=== PATIENT | female | born 1975 | race Caucasian/White ===

== ENCOUNTER 2019-01-17 15:45 | Day surgery (SDC) | payer MEDICAID, OTHER ==
[2019-01-17] VITALS (15 sets, daily range): BP systolic 105–131; BP diastolic 62–81; PULSE 64–81; RESP 9–20; Ht 165.1 cm; Wt 95.0 kg
[~2019-01-17] VITALS: Ht 165.1 cm; Wt 95.0 kg
[~2019-01-17 15:45] MED LIST: SEVOFLURANE 15 MIN ONE
--- NOTE | 2019-01-17 17:13 | PREAC ---
Date/Time of Note Date/Time of Note DATE: 01/17/19 TIME: 17:12 Anesthesia Eval and Record Evaluation Time Pre-Procedure Interview DATE: 01/17/19 TIME: 17:12 Age 43 Sex female NPO: 8 hrs Preoperative diagnosis LEFT ACHILLES TENDON RUPTURE Planned procedure LEFT ACHILLES TENDON REPAIR Past Medical History Past Medical History: Includes GI: Obesity Surgery & Anesthesia Issues No known issue Meds Anticoagulation: No Beta Ozzie within 24 hr: No Reason Beta Ozzie not given: Pt. not on B-Ozzie Meds reviewed: Yes Allergies Allergies Reviewed: Yes Labs/Studies Labs Reviewed: Other (NA) test: N/A Pre-procedure Exam Last vitals Vital Signs Date Temp Pulse Resp B/P (MAP) Pulse Ox O2 O2 Flow FiO2 Time Delivery Rate 01/17/19 98.1 64 16 131/78 100 Room Air 16:26 (95) Airway: Adequate mouth opening Mallampati: Mallampati II Teeth: Normal Lung: Normal Heart: Normal ASA Physical Status ASA physical status: 2 Emergency: None Planned Anesthetic General/MAC: ETT Pre-operative Attestations Prior to commencing anesthesia and surgery, the patient was re-evaluated, there was verification of: *The patient's identity *The results of appropriate recent lab work and preoperative vital signs *The above evaluation not changing prior to induction *Anesthetic plan, risk benefits, alternative and complications discussed with patient/family; questions answered; patient/family understands, accepts and wishes to proceed. VADIM GALVAN Jan 17, 2019 17:13
[2019-01-17] MEDS ORDERED: POLYMYXIN/BACITRACIN 1L IRRIG ONE (17:27)
[2019-01-17] MEDS ORDERED: ROPIVACAINE 0.5 % 30 ML VIAL ONE (17:27)
[2019-01-17] MEDS ORDERED: NEOMYC/POLYMYX/BACIT 30 GM OINT ONE (17:28)
[2019-01-17] MEDS ORDERED: BUPIVACAINE 0.5% (SDV) 30 ML INJ ONE (18:09)
[2019-01-17] MEDS ORDERED: MIDAZOLAM 1 MG/ML 2 ML INJ ONE (18:10)
[2019-01-17] MEDS ORDERED: FENTAnyl 50 MCG/ML VIAL ONE ×2 (18:11→19:34)
--- NOTE | 2019-01-17 18:31 | HPN ---
Date/Time of Note Date/Time of Note DATE: 01/17/19 TIME: 18:31 Interval H&P Admission Note Pt. seen H&P reviewed: No system changes KAELYN HUMPHRIES MD Jan 17, 2019 18:31
[2019-01-17] MEDS ORDERED: PROPOFOL 20 ML ONE (18:42)
[2019-01-17] MEDS ORDERED: OXYCODONE/ACETAMINOPHEN (5/325) TAB PO PRN ×3 (19:00→21:00)
[2019-01-17] MEDS ORDERED: morphine 2 MG INJ IV PRN (19:00)
[2019-01-17] MEDS ORDERED: GABAPENTIN 300 MG CAP PO ONE (19:00)
[2019-01-17] MEDS ORDERED: THROMBIN 5000 UNIT VIAL ONE ×2 (19:21→19:54)
[2019-01-17] MEDS ORDERED: CA CHLORIDE 10% 10 ML SYRINGE ONE (19:21)
[2019-01-17] MEDS ORDERED: CEFAZOLIN 1 GM INJ ONE (19:31)
[2019-01-17] MEDS ORDERED: LIDOCAINE 2% (SDV) 5 ML INJ ONE (19:32)
[2019-01-17] MEDS ORDERED: DEXAMETHASONE 4 MG/ML 5 ML INJ ONE (19:32)
[2019-01-17] MEDS ORDERED: ROCURONIUM 50 MG INJ ONE (19:32)
[2019-01-17] MEDS ORDERED: ONDANSETRON 4 MG INJ ONE (19:32)
[2019-01-17] MEDS ORDERED: SUGAMMADEX SODIUM 200 MG/2 ML VIAL IV ONE (20:22)
--- NOTE | 2019-01-17 20:44 | PAC ---
Date/Time of Note Date/Time of Note DATE: 01/17/19 TIME: 20:44 Post-Anesthesia Notes Post-Anesthesia Note Last documented vital signs Vital Signs Date Temp Pulse Resp B/P (MAP) Pulse Ox O2 O2 Flow FiO2 Time Delivery Rate 01/17/19 98.1 64 16 131/78 100 Room Air 2044 (95) Activity: WNL Respiratory function: WNL Cardiovascular function: WNL Mental status: Baseline Pain reasonably controlled: Yes Hydration appropriate: Yes Nausea/Vomiting absent: Yes MICHELLE BOYLE Jan 17, 2019 20:44
[2019-01-17] MEDS ORDERED: LABETALOL HCL 20MG INJ IV PRN (21:00)
[2019-01-17] MEDS ORDERED: EPHEDrine 25 MG/5 ML SYG IV PRN (21:00)
[2019-01-17] MEDS ORDERED: DIPHENHYDRAMINE 50 MG INJ IV PRN (21:00)
[2019-01-17] MEDS ORDERED: hydrALAzine 20 MG INJ IV PRN (21:00)
[2019-01-17] MEDS ORDERED: ONDANSETRON 4 MG INJ IV PRN (21:00)
[2019-01-17] MEDS ORDERED: ALBUTEROL 0.083% (NEB) 2.5 MG/3 ML AMP HHN PRN (21:00)
[2019-01-17] MEDS ORDERED: MEPERIDINE 25 MG INJ IV PRN (21:00)
[2019-01-17] MEDS ORDERED: METOCLOPRAMIDE 10 MG INJ IV PRN (21:00)
[2019-01-17] MEDS ORDERED: FENTAnyl 50 MCG/ML VIAL IV PRN ×3 (21:00)
[2019-01-17] MEDS ORDERED: KETOROLAC 30 MG INJ IV PRN (21:00)
[2019-01-17] MEDS ORDERED: HYDROmorphONE 1 MG/5 ML IV SYRINGE IV PRN ×3 (21:00)
--- NOTE | 2019-01-17 22:34 | OPR ---
Date/Time of Note Date/Time of Note DATE: 01/17/19 TIME: 22:32 Operative Report Procedure Date: Jan 17, 2019 Preoperative Diagnosis Left Achilles Rupture Postoperative Diagnosis Left Achilles Rupture Operation/Procedure Performed Left Achilles Rupture repair with PRP and Allograft Surgeon Babak Humphries MD Production Maintenance Technician none Anesthesia Type: general, other (popliteal) Anesthesiologist: MICHELLE BOYLE Tourniquet Time: 51 min at 250 mmHg Estimated Blood Loss: minimal Transfusion none Specimen none Grafts/Implants Arthrex PRP 5%, amnion, Mid Substance PARS with Swivel Lock x 2 Complications none Pt Condition Post Procedure: stable Disposition: PACU Indications Patient is a 43-year-old female with a left Achilles rupture approximately 3 weeks ago. Patient was diagnosed with Achilles rupture. Patient was indicated for surgical fixation. Risk Note: Patient was explained the risks and benefits of surgery and the patient's [place] language including not limited to infection, bleeding, injury to blood vessels, nerves, ligaments or tendons. Risks of anesthesia, deep vein thrombosis and need for reduce future surgery. Patient acknowledged these risk by signing the surgical consent form. Procedure Description The patient was met in the preoperative holding area and the operation was marked and confirmed with patient and consent. Patient was brought to the operative theater and placed supine on the operative table and given preoperative antibiotics and regional anesthesia. A tourniquet was placed on the operative extremity non-sterilely. Patient was then placed into the prone position with all bony prominences well-padded. The patient was then prepped and draped in the normal sterile fashion. Timeout taken and all parties in the room agreed it was the correct patient, extremity and procedure. An incision was made over the distal portion of the Achilles. Once the scar tissue was debrided he Achilles was freed up proximally and distally. I then placed a pars jig was placed over the proximal aspect of the Achilles. The pars suture construct was then performed in typical manner using a locking suture in both the medial and lateral side. The repair was then tested and shown to have excellent excursion on the proximal side. 2 drill holes were then made in the calcaneus and then tapped and then using a banana suture lasso passed through both the distal and Achilles stump and the proximal Achilles stump to pull the suture down and out through the stab incisions. A 4.75 mm swivel lock were then placed with appropriate tension on the Achilles at the calcaneus with the Achilles brought to approximation as best possible. The wound was irrigated again and an epitendonous suture was then placed with 3-0 PDS, then a viscous PRP was placed over the Achilles repair. The peritenon was closed with a 3-0 Vicryl followed by amniotic membrane placed over the peritenon and then skin closed with a 3-0 Monocryl followed by 4-0 Monocryl. The Calcaneal incision was closed with a 4-0 Nylon. The repair construct was tested and shown to have active plantarflexion with the Dhaliwal test. The wounds were then cov ered with Xeroform antibiotic ointment and 4 x 4's soaked with platelet poor plasma and placed in a well-padded short leg splint in approximately 15-20 degrees of plantarflexion. The patient Was taken to the PACU in a stable condition and all sponge and n eedle counts were correct. In the PACU the patient's toes were warm and well perfused. Patient will remain nonweightbearing for the next 5 weeks and begin aspirin 81 mg p.o. twice daily beginning tomorrow for DVT prophylaxis. BABAK HUMPHRIES MD Jan 17, 2019 22:34
== END 2019-01-17 22:44 | disposition home or self-care (01) ==
LOC: SDS 15:45
PROVIDERS: ATTEND Orthopaedic Surgery
DX: S86.012A Strain of left Achilles tendon, initial encounter (principal); X58.XXXA Exposure to other specified factors, initial encounter
CPT/HCPCS: 27650; 82306; 84703; J0690; J1100; J2250; J2405; J3010; Z7512; Z7610; J2795